=== PATIENT | male | born 1940 | race Asian ===

== ENCOUNTER 2021-01-06 09:23 | Outpatient (REF) | payer MEDICARE, SELFPAY ==
--- NOTE | 2021-01-06 15:08 | MHC.AU.ANR ---
Adult Audiological Evaluation Date of Visit: 01/06/21 House Mover Helper Used: Citizen [place] translation provided by patient's daughter Reason for Appointment: Audiological evaluation due to concern for decreased hearing. Patient notes that he can hear, he just has trouble understanding speech at times. His daughter notes that they do often have to repeat themselves. 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, diabetic neuropathy, high cholestorol, anemia, migraine, cataract surgery in 2013, abdominal surgery 2005 Medication List: Januvia 100 mg, Atorvastatin 20 mg, Metformin ER 500 mg 2x daily, Omeprazole 20 mg, Glipizide 10 mg Otoscopy: Right Ear: Unremarkable Left Ear: Unremarkable Tympanometry: Tympanometry performed due to: History of middle ear dysfunction Right Ear: Normal Middle Ear System (Type A) Left Ear: Normal Middle Ear System (Type A) Hearing Evaluation: Transducer(s) Used: Insert Earphones, Bone Conduction Method: Conventional Audiometry Stimuli Used: Pure Tones Right Ear: Description of Hearing: Moderate sloping to severe sensorineural hearing loss from 250-8000 Hz. Left Ear: Description of Hearing: Moderate sloping to severe sensorineural hearing loss from 250-8000 Hz. Speech Recognition Threshold (SRT): Method Used: Not performed at today's visit. Patient speaks [place]. Word Discrimination: Method: Not performed at today's visit. Patient speaks [place]. Recommendations: Audiological re-evaluation in one year. Trial with amplification is recommended. Patient states he is not interested in pursuing hearing aids at this time. His daughter notes that he also refuses to wear his dentures and glasses. Recommend he contact his insurance to see if he has a hearing aid benefit if he decides he would like to pursue hearing aids. Diagnosis: Primary Diagnosis: H90.3 Bilateral Sensorineural Hearing Loss Services Performed: Services Performed: Pure Tone- Air & Bone (CPT 63563) Tympanometry (CPT 96618) Signature: Provider: Heraclio Castellanos, CCC-A
== END 2021-01-06 09:24 | disposition home or self-care (01) ==
LOC: HO.SH 09:23
PROVIDERS: Visit Provider Nurse Practitioner Family
DX: H90.3 Sensorineural hearing loss, bilateral (principal)
CPT/HCPCS: 92553; 92567

== ENCOUNTER 2021-02-19 07:06 | Emergency (ER) | payer MEDICARE, SELFPAY ==
--- NOTE | ~2021-02-19 | XR_ITS ---
EXAMINATION: XR CHEST CLINICAL INFORMATION: Fever COMPARISON: October 01, 2018 TECHNIQUE: AP portable view of the chest was obtained. FINDINGS: There is some patchy groundglass opacity seen about the inferior half of the left lung with some bronchial wall thickening. No confluent disease is seen. No pneumothorax or pleural effusion. Heart normal size. No evidence of pulmonary edema. XR/XR chest 1V IMPRESSION: Ill-defined patchy density left base which may be related to pneumonitis or atelectasis.
--- NOTE | ~2021-02-19 | CT_ITS ---
EXAMINATION: CT ABDOMEN AND PELVIS WITH CONTRAST CLINICAL INFORMATION: Left lower quadrant pain COMPARISON: October 01, 2018 TECHNIQUE: Multidetector volumetric images were obtained from the superior aspect of the liver through the pubic symphysis following administration 85 mL of Omnipaque 350 intravenous contrast. Sagittal and coronal reformatted images were obtained on the technologist's workstation. Oral contrast: No This CT examination was performed using dose optimization techniques as appropriate, variously including the following: *Automated exposure control *Adjustment of mA and/or kV according to patient size (this includes techniques or standardized protocols for targeted exams where dose is matched to indication/reason for exam; i.e. extremities or head) *Use of iterative reconstruction technique DLP: 397 mGy-cm FINDINGS: Motion artifact present about the upper abdomen. LUNG BASES: There is some groundglass interstitial lung disease seen at the lung bases bilaterally. No pleural or pericardial effusion. Coronary artery calcifications present. LIVER, GALLBLADDER, AND BILIARY TREE: The liver is normal in size, shape, and attenuation. No focal hepatic lesion or biliary ductal dilatation is present. The gallbladder is unremarkable with no evidence of radiopaque gallstones, gallbladder wall thickening, or obvious pericholecystic inflammatory changes. PANCREAS: Unremarkable. SPLEEN: Splenic calcified granulomas are present. ADRENAL GLANDS: Unremarkable. KIDNEYS AND URETERS: The kidneys are normal in size, shape, and attenuation. No hydronephrosis, hydroureter, or calculi seen. No perinephric stranding. There are a few tiny cortical cysts seen within the left kidney. BLADDER: Unremarkable. GASTROINTESTINAL TRACT: No dilated loops of large or small bowel are evident. There are a few fluid-filled loops of small bowel seen within the left abdomen. There is some gaseous distention of transverse colon. No wall thickening is evident. There is no evidence of acute appendicitis. No pericolonic inflammatory changes seen to suggest colitis. No free air or free fluid. ABDOMINAL WALL: No significant hernia is appreciated. LYMPH NODES: No lymphadenopathy appreciated. VASCULAR: There is moderate aortoiliac calcified plaque present. Visceral vessels are patent. There is question of hemodynamically significant right common iliac stenosis. PELVIC VISCERA: Some prostatic calcifications are present. There is some mass impression upon the posterior inferior aspect of the urinary bladder from median lobe of the prostate gland. OSSEOUS STRUCTURES: No suspicious destructive bony lesions identified. CT/CT abdomen pelvis w con IMPRESSION: No evidence of ileus or obstruction. No evidence of obstructive uropathy. No specific findings to explain patient's symptoms identified.
--- NOTE | 2021-02-19 07:16 | ECG_ITS ---
Test Reason : abd pain Blood Pressure : / mmHG Vent. Rate : 100 BPM Atrial Rate : 100 BPM P-R Int : 180 ms QRS Dur : 142 ms QT Int : 386 ms P-R-T Axes : 045 021 048 degrees QTc Int : 497 ms Normal sinus rhythm Right bundle branch block Abnormal ECG When compared with ECG of 25-JUN-2015 02:15, Right bundle branch block is now Present Referred By: Mary Kay Schmidt Electronically Signed By:FELICITAS DEUTSCH
[2021-02-19 08:00] VITALS: PULSE 116; RESP 20; TEMP 38.6; O2SAT 97; BMI 21.6
--- NOTE | 2021-02-19 08:11 | ED.ABDPAIN ---
HPI - Abdominal Pain General Chief Complaint: Abdominal Pain Stated Complaint: abd pain Time Seen by Provider: 02/19/21 07:16 Source: patient Mode of arrival: ambulatory Limitations: no limitations History of Present Illness HPI narrative: Patient comes to the emergency room complaining of left lower quadrant pain that started yesterday. Patient denies vomiting or diarrhea. Patient denies fever. However, in triage patient did have a fever of 101.5. Patient states he has had this kind of pain before. Patient does have history of kidney stones. Patient is compliant speaking, his daughter is at bedside, on interpretation was done through the interpreter for the deaf [employer] Related Data Previous Rx's Medication Instructions Recorded levofloxacin 500 mg tablet 500 mg PO DAILY #6 tab 02/19/21 Allergies Allergy/AdvReac Type Severity Reaction Status Date / Time shellfish derived Allergy Intermediate HIVES Unverified 03/06/20 18:53 [SHELLFISH DERIVED] Review of Systems Review of Systems Constitutional : No Weight loss, No Fever, No Chills, No Night Sweats, No Fatigue, No Malaise ENT/Mouth : No Hearing loss, No Ear Pain, No Nasal Congestion, No Sinus Pain, No Hoarseness, No sore throat, No Rhinorrhea, No Swallowing Difficulty Eyes: No Eye Pain, No Swelling, No Redness, No Foreign Body, No Discharge, No Vision Changes Cardiovascular : No Chest Pain, No SOB, No Dyspnea on Exertion, No Orthopnea, No Edema, No Palpitations Respiratory : No Cough, No Sputum, No Wheezing, No Smoke Exposure, No Dyspnea Gastrointestinal : No Nausea, No Vomiting, No Diarrhea, No Constipation, complaining of left lower quadrant pain No Hematochezia, No Melena Genitourinary : no irregular bleeding, No Dysuria, No Urinary Frequency, No Hematuria, No Urinary Incontinence, No Urgency, No Flank Pain, No Urinary Flow Changes, No Hesitancy Musculoskeletal : No joint pain, No Myalgias, No Joint Swelling Skin : No Skin Lesions, No rash Neuro : No Weakness, No Numbness, No Paresthesias, No Loss of Consciousness, No Dizziness, No Headache Psych : No Anxiety/Panic, No Depression, No SI/HI/AH/VH, No Social Issues, Heme/Lymph: No Bruising, No Bleeding,No Lymphadenopathy Endocrine : No Polyuria, No Polydipsia, No Temperature Intolerance Physical Exam Vital Signs: Vital Signs: Last Vital Signs Temp 99 F 09/02/21 10:40 Pulse 94 02/19/21 10:40 Resp 17 02/19/21 10:40 BP 135/88 02/19/21 10:40 Pulse Ox 96 02/19/21 10:40 Body Mass Index 21.6 Const: Other: Appearance: Alert. Oriented X3. No acute distress. Eyes: Pupils equal, round and reactive to light. ENT: Pharynx normal. Neck: Normal inspection. Neck supple. No lymph nodes noted. No crepitus CVS: Normal heart rate and rhythm. Pulses normal. Normal S1 and S2 Respiratory: No respiratory distress. Breath sounds normal. No Wheezing. No rales Abdomen: Soft , [id number] tenderness to palpation in the left lower quadrant No rigidity. No distention. Skin: Skin warm and dry. Normal skin color. Normal skin turgor. Extremities: No lower extremity edema. No lower extremity edema. No Lacerations. No Rash. Patient is ambulatory without any help, has normal strength. Neuro: Oriented X 3. No motor deficit. No sensory deficit. Moving all extermities. No slurred speech. Course Course Course Narrative: I discussed with the patient and his daughter the labs and the CT scan findings. I also discussed with the that there may be a mass in the posterior inferior aspect of the urinary bladder from the median lobe of the prostate gland. Patient will follow-up with his primary care physician, he may need to follow-up with urology. Patient was given 1 p.o. dose of Levaquin, to cover both possible pneumonia and UTI. At this time sepsis is not suspected. MDM - Abdominal Pain Lab Data Result diagrams: 02/19/21 08:24 02/19/21 08:24 Labs: Lab Results 02/19/21 02/19/21 02/19/21 Range/Units 08:24 08:24 08:24 WBC 11.9 H (4.8-10.8) X10*3/uL RBC 4.19 L (4.60-5.80) X10*6/uL Hgb 12.5 L (14.0-18.0) g/dl Hct 37.5 L (42-52) % MCV 89.5 (80-98) fL MCH 29.8 (27.0-33.0) pg MCHC 33.3 (31.0-36.0) g/dl RDW 12.7 (11.0-16.0) % Plt Count 153 L (160-400) X10*3/uL MPV 10.1 (9.4-12.4) fL Immature Gran % (Auto) 0.4 (0.0-0.4) % Neut % (Auto) 78.9 H (45-73) % Lymph % (Auto) 7.8 L (20-40) % [place] % (Auto) 7.0 (2-11) % Eos % (Auto) 5.7 H (0-4) % Baso % (Auto) 0.2 (0-2) % Lymph # (Auto) 0.9 L (1.2-4.9) X10*3/uL [place] # (Auto) 0.8 (0.1-1.2) X10*3/uL Eos # (Auto) 0.7 H (0.0-0.4) X10*3/uL Baso # (Auto) 0.0 (0.0-0.2) X10*3/uL Abs Immat Gran (auto) 0.05 H (0.00-0.03) X10*3/uL Absolute Neuts (auto) 9.4 H (2.0-8.3) X10*3/uL Absolute Nucleated RBC 0.000 (0.0-0.012) X10*3/uL Nucleated RBC % (auto) 0.0 (0.0-0.2) /100WBC Smear Tech's Comments VERIFIED PT 11.7 (9.9-13.0) SEC INR 1.0 (0.9-1.1) Sodium 133 L (135-145) mmol/L Potassium 4.4 (3.3-5.1) mmol/L Chloride 101 (96-108) mmol/L Carbon Dioxide 23 (22-29) mmol/L Anion Gap 13 (12-20) BUN 10 (9-16) mg/dL Creatinine 1.01 (0.5-1.4) mg/dL Estim Creat Clear Calc 49.4 Estimated GFR > 60 Random Glucose 167 H (60-115) mg/dL Lactic Acid (0.5-2.0) mmol/L Calcium 9.2 (8.4-10.2) mg/dL Total Bilirubin 0.6 (0.0-1.0) mg/dL Direct Bilirubin 0.2 (0.0-0.5) mg/dL AST 26 (5-37) U/L ALT 16 (0-40) U/L Alkaline Phosphatase 107 (39-117) U/L Total Protein 8.1 H (6.5-8.0) g/dL Albumin 4.1 (3.5-5.0) g/dL Lipase (8-78) U/L Urine Color Urine Appearance Urine pH (5.0-8.0) Ur Specific [place] (1.005-1.025) Urine Protein (NEG-TRACE) MG/DL Urine Glucose (UA) (NEG) MG/DL Urine Ketones (NEG) MG/DL Urine Blood (NEG) Urine Nitrite (NEG) Ur Leukocyte Esterase (NEG) Urine RBC (0) /HPF Urine WBC (0-4) /HPF Ur Squamous Epith Cells /LPF Urine Bacteria /LPF COVID-19 ([facility]) (Negative) COVID-19 Clin Com 02/19/21 02/19/21 02/19/21 Range/Units 08:24 08:24 08:24 WBC (4.8-10.8) X10*3/uL RBC (4.60-5.80) X10*6/uL Hgb (14.0-18.0) g/dl Hct (42-52) % MCV (80-98) fL MCH (27.0-33.0) pg MCHC (31.0-36.0) g/dl RDW (11.0-16.0) % Plt Count (160-400) X10*3/uL MPV (9.4-12.4) fL Immature Gran % (Auto) (0.0-0.4) % Neut % (Auto) (45-73) % Lymph % (Auto) (20-40) % [place] % (Auto) (2-11) % Eos % (Auto) (0-4) % Baso % (Auto) (0-2) % Lymph # (Auto) (1.2-4.9) X10*3/uL [place] # (Auto) (0.1-1.2) X10*3/uL Eos # (Auto) (0.0-0.4) X10*3/uL Baso # (Auto) (0.0-0.2) X10*3/uL Abs Immat Gran (auto) (0.00-0.03) X10*3/uL Absolute Neuts (auto) (2.0-8.3) X10*3/uL Absolute Nucleated RBC (0.0-0.012) X10*3/uL Nucleated RBC % (auto) (0.0-0.2) /100WBC Smear Tech's Comments PT (9.9-13.0) SEC INR (0.9-1.1) Sodium (135-145) mmol/L Potassium (3.3-5.1) mmol/L Chloride (96-108) mmol/L Carbon Dioxide (22-29) mmol/L Anion Gap (12-20) BUN (9-16) mg/dL Creatinine (0.5-1.4) mg/dL Estim Creat Clear Calc Estimated GFR Random Glucose (60-115) mg/dL Lactic Acid 1.5 (0.5-2.0) mmol/L Calcium (8.4-10.2) mg/dL Total Bilirubin (0.0-1.0) mg/dL Direct Bilirubin (0.0-0.5) mg/dL AST (5-37) U/L ALT (0-40) U/L Alkaline Phosphatase (39-117) U/L Total Protein (6.5-8.0) g/dL Albumin (3.5-5.0) g/dL Lipase 32 (8-78) U/L Urine Color Urine Appearance Urine pH (5.0-8.0) Ur Specific [place] (1.005-1.025) Urine Protein (NEG-TRACE) MG/DL Urine Glucose (UA) (NEG) MG/DL Urine Ketones (NEG) MG/DL Urine Blood (NEG) Urine Nitrite (NEG) Ur Leukocyte Esterase (NEG) Urine RBC (0) /HPF Urine WBC (0-4) /HPF Ur Squamous Epith Cells /LPF Urine Bacteria /LPF COVID-19 ([facility]) Negative (Negative) COVID-19 Clin Com See Note 02/19/21 Range/Units 09:08 WBC (4.8-10.8) X10*3/uL RBC (4.60-5.80) X10*6/uL Hgb (14.0-18.0) g/dl Hct (42-52) % MCV (80-98) fL MCH (27.0-33.0) pg MCHC (31.0-36.0) g/dl RDW (11.0-16.0) % Plt Count (160-400) X10*3/uL MPV (9.4-12.4) fL Immature Gran % (Auto) (0.0-0.4) % Neut % (Auto) (45-73) % Lymph % (Auto) (20-40) % [place] % (Auto) (2-11) % Eos % (Auto) (0-4) % Baso % (Auto) (0-2) % Lymph # (Auto) (1.2-4.9) X10*3/uL [place] # (Auto) (0.1-1.2) X10*3/uL Eos # (Auto) (0.0-0.4) X10*3/uL Baso # (Auto) (0.0-0.2) X10*3/uL Abs Immat Gran (auto) (0.00-0.03) X10*3/uL Absolute Neuts (auto) (2.0-8.3) X10*3/uL Absolute Nucleated RBC (0.0-0.012) X10*3/uL Nucleated RBC % (auto) (0.0-0.2) /100WBC Smear Tech's Comments PT (9.9-13.0) SEC INR (0.9-1.1) Sodium (135-145) mmol/L Potassium (3.3-5.1) mmol/L Chloride (96-108) mmol/L Carbon Dioxide (22-29) mmol/L Anion Gap (12-20) BUN (9-16) mg/dL Creatinine (0.5-1.4) mg/dL Estim Creat Clear Calc Estimated GFR Random Glucose (60-115) mg/dL Lactic Acid (0.5-2.0) mmol/L Calcium (8.4-10.2) mg/dL Total Bilirubin (0.0-1.0) mg/dL Direct Bilirubin (0.0-0.5) mg/dL AST (5-37) U/L ALT (0-40) U/L Alkaline Phosphatase (39-117) U/L Total Protein (6.5-8.0) g/dL Albumin (3.5-5.0) g/dL Lipase (8-78) U/L Urine Color YELLOW Urine Appearance HAZY Urine pH 6.0 (5.0-8.0) Ur Specific [place] <= 1.005 (1.005-1.025) Urine Protein NEG (NEG-TRACE) MG/DL Urine Glucose (UA) NEG (NEG) MG/DL Urine Ketones NEG (NEG) MG/DL Urine Blood NEG (NEG) Urine Nitrite NEG (NEG) Ur Leukocyte Esterase 1+ H (NEG) Urine RBC 0-2 (0) /HPF Urine WBC 15-29 H (0-4) /HPF Ur Squamous Epith Cells TRACE /LPF Urine Bacteria TRACE /LPF COVID-19 ([facility]) (Negative) COVID-19 Clin Com Imaging Data CT scan - abdomen: Radiologist's impression: FINDINGS: Motion artifact present about the upper abdomen. LUNG BASES: There is some groundglass interstitial lung disease seen at the lung bases bilaterally. No pleural or pericardial effusion. Coronary artery calcifications present. LIVER, GALLBLADDER, AND BILIARY TREE: The liver is normal in size, shape, and attenuation. No focal hepatic lesion or biliary ductal dilatation is present. The gallbladder is unremarkable with no evidence of radiopaque gallstones, gallbladder wall thickening, or obvious pericholecystic inflammatory changes.? PANCREAS: Unremarkable.? SPLEEN: Splenic calcified granulomas are present.? ADRENAL GLANDS: Unremarkable.? KIDNEYS AND URETERS: The kidneys are normal in size, shape, and attenuation. No hydronephrosis, hydroureter, or calculi seen. No perinephric stranding. There are a few tiny cortical cysts seen within the left kidney. BLADDER: Unremarkable.? GASTROINTESTINAL TRACT: No dilated loops of large or small bowel are evident. There are a few fluid-filled loops of small bowel seen within the left abdomen. There is some gaseous distention of transverse colon. No wall thickening is evident. There is no evidence of acute appendicitis. No pericolonic inflammatory changes seen to suggest colitis. No free air or free fluid.? ABDOMINAL WALL: No significant hernia is appreciated.? LYMPH NODES: No lymphadenopathy appreciated. VASCULAR: There is moderate aortoiliac calcified plaque present. Visceral vessels are patent. There is question of hemodynamically significant right common iliac stenosis. PELVIC VISCERA: Some prostatic calcifications are present. There is some mass impression upon the posterior inferior aspect of the urinary bladder from median lobe of the prostate gland. OSSEOUS STRUCTURES: No suspicious destructive bony lesions identified. CT/CT abdomen pelvis w con IMPRESSION: No evidence of ileus or obstruction. ? No evidence of obstructive uropathy. ? No specific findings to explain patient's symptoms identified.? Chest x-ray: Radiologist's impression: There is some patchy groundglass opacity seen about the inferior half of the left lung with some bronchial wall thickening. No confluent disease is seen. No pneumothorax or pleural effusion. Heart normal size. No evidence of pulmonary edema. XR/XR chest 1V IMPRESSION: Ill-defined patchy density left base which may be related to pneumonitis or atelectasis. ECG Data Attestation: I personally reviewed and interpreted this ECG as follows: (Sinus rhythm, new right bundle-branch block when compared to EKG from 2016, no T-wave abnormality, QTC 480) Discharge Plan Discharge Clinical Impression: Acute UTI, Pneumonia, Abdominal pain Patient Disposition: Home, Self-Care Instructions: Urinary Tract Infection in Men (ED), Pneumonia (ED) Additional Instructions: Please follow-up with your primary care physician, you may need to be referred to Urology. Your CT scan showed a mass impression upon the inferior aspect of the urinary bladder from the prostate gland. Please follow-up with your primary care physician tomorrow. If you have any worsening or new symptoms, please return to the emergency room or call 911 Prescriptions: New levofloxacin 500 mg tablet 500 mg PO DAILY Qty: 6 RF: 0 PMFSH Past Medical History Medical History (Updated 02/19/21 @ 11:19 by Mary Kay Schmidt MD) Diabetes Hypertension Kidney stone Social History Social History Advance Directives: No Advance Directives Information Provided: No
[2021-02-19] MEDS: 0.9 % Sodium Chloride 1,000 ML 999 ML IVCONT (08:27)
[2021-02-19] MEDS: Acetaminophen 325 MG TABLET 650 MG PO (08:27)
[2021-02-19 08:35] LABS: Basophils Percent Auto 0.2 % (0-2); Eosinophils Absolute Auto 0.7 X10*3/uL (0.0-0.4); Eosinophils Percent Auto 5.7 % (0-4); Hematocrit 37.5 % (42-52); Hemoglobin 12.5 g/dl (14.0-18.0); Imm Gran Abs Auto 0.05 X10*3/uL (0.00-0.03); Imm Gran Pct Auto 0.4 % (0.0-0.4); Lymphocytes Absolute Auto 0.9 X10*3/uL (1.2-4.9); Lymphocytes Percent Auto 7.8 % (20-40); MANUAL DIFF FLAG SCAN; Mean Corpuscular HGB Conc 33.3 g/dl (31.0-36.0); Mean Corpuscular Hemoglobin 29.8 pg (27.0-33.0); Mean Corpuscular Volume 89.5 fL (80-98); Monocytes Absolute Auto 0.8 X10*3/uL (0.1-1.2); Neutrophils Absolute Auto 9.4 X10*3/uL (2.0-8.3); Neutrophils Percent Auto 78.9 % (45-73); PLT CLUMP 1; Red Blood Count 4.19 X10*6/uL (4.60-5.80); Red Cell Distribution Width 12.7 % (11.0-16.0); SCAN SMEAR FLAG 1
[2021-02-19 08:36] LABS: White Blood Count 11.9 X10*3/uL (4.8-10.8)
[2021-02-19 08:39] LABS: Prothrombin Time 11.7 SEC (9.9-13.0)
[2021-02-19 08:47] LABS: COVID-19 Test Negative (Negative); IDNOW Serial# 9DD0AD1C
[2021-02-19 08:48] LABS: Lipase 32 U/L (8-78)
[2021-02-19 08:52] LABS: Mean Platelet Volume 10.1 fL (9.4-12.4); Platelet Count 153 X10*3/uL (160-400); SLIDE REVIEW VERIFIED
[2021-02-19 08:54] LABS: Alanine Aminotransferase 16 U/L (0-40); Albumin Level 4.1 g/dL (3.5-5.0); Alkaline Phosphatase 107 U/L (39-117); Anion Gap 13 (12-20); Aspartate Amino Transferase 26 U/L (5-37); Bilirubin Direct 0.2 mg/dL (0.0-0.5); Bilirubin Total 0.6 mg/dL (0.0-1.0); Blood Urea Nitrogen 10 mg/dL (9-16); Calcium 9.2 mg/dL (8.4-10.2); Carbon Dioxide 23 mmol/L (22-29); Chloride 101 mmol/L (96-108); Creatinine Clr Calc Pharmacy 49.4; Estimated Glomerular Filt Rate > 60; Glucose Random 167 mg/dL (60-115); Potassium 4.4 mmol/L (3.3-5.1); Sodium 133 mmol/L (135-145); Total Protein 8.1 g/dL (6.5-8.0)
[2021-02-19 08:59] LABS: Lactic Acid 1.5 mmol/L (0.5-2.0)
[2021-02-19 09:23] LABS: Appearance Urine HAZY; Color Urine YELLOW; Glucose Urine UA NEG (NEG); Leukocyte Esterase Urine 1+ (NEG); Nitrite Urine NEG (NEG); Specific Gravity - Urine <= 1.005 (1.005-1.025); UACC Culture Trigger YES; Urine Blood NEG (NEG); Urine Ketones NEG (NEG); Urine Protein NEG (NEG-TRACE)
[2021-02-19] MEDS: iohexoL 350 MG/ML 100 ML INFUS..BTL IV (09:31)
[2021-02-19 09:34] LABS: Bacteria Urine TRACE /LPF; RBC Urine 0-2 /HPF (0); Squamous Epithelial Cell Urine TRACE /LPF
[2021-02-19 10:40] VITALS: BP 135/88; PULSE 94; RESP 17; TEMP 37.2; O2SAT 96
== END 2021-02-19 11:44 | disposition home or self-care (01) ==
PROVIDERS: Emergency Provider Emergency Medicine; PCP Internal Medicine
DX: J18.9 Pneumonia, unspecified organism (principal); N39.0 Urinary tract infection, site not specified; R10.32 Left lower quadrant pain; Z20.822 Contact with and (suspected) exposure to COVID-19; Z79.899 Other long term (current) drug therapy
CPT/HCPCS: 36415; 71045; 74177; 80048; 80076; 81001; 83605; 83690; 85025; 85610; 87040; 87086; 87088; 87186; 87635; 93005; 96360; 99284; Q9967

== ENCOUNTER 2023-10-29 17:20 | Inpatient (IN) | payer MEDICARE, SELFPAY ==
[2023-10-29] VITALS (9 sets, daily range): BP systolic 113–196; BP diastolic 54–100; PULSE 102–126; RESP 14–24; TEMP 37.3–39.4; O2SAT 96–100; BMI 16.4
--- NOTE | ~2023-10-29 | XR_ITS ---
EXAMINATION: XR CHEST CLINICAL INFORMATION: Sepsis COMPARISON: Chest radiograph 02/19/2021. TECHNIQUE: Frontal view of the chest was obtained. FINDINGS: Mild coarse, streaky bibasilar reticular opacities, similar to prior. No confluent consolidation. No pleural effusion or pneumothorax. Cardiomediastinal silhouette is unchanged. XR/XR chest 1V IMPRESSION: Mild coarse, streaky bibasilar reticular opacities, similar to prior, favored to represent scarring. No confluent consolidation.
--- NOTE | ~2023-10-29 | CT_ITS ---
EXAMINATION: CT head/brain wo IV con, CT cervical spine wo IV con INDICATION INFORMATION: Reason for Exam altered mental status COMPARISON: CT head 12/23/2016 TECHNIQUE: Separate noncontrast CT examinations of the head and cervical spine were performed. Coronal and sagittal images were created for each examination at the technologist workstation. This CT examination was performed using dose optimization techniques as appropriate, variously including the following: *Automated exposure control *Adjustment of mA and/or kV according to patient size (this includes techniques or standardized protocols for targeted exams where dose is matched to indication/reason for exam; i.e. extremities or head) *Use of iterative reconstruction technique DLP: 911.55 mGy-cm mGy-cm FINDINGS: Head: FINDINGS: There is no evidence of acute intracranial hemorrhage]. No mass-effect or ventricular shift is noted. No acute, territorial loss of napier-white differentiation. Generalized cerebral volume loss with associated ventricular and sulcal prominence. Chronic right basal ganglia/thomas radiata lacunar infarction. Smaller chronic left basal ganglia and left ambika lacunar infarctions. Periventricular and subcortical white matter hypodensity is nonspecific but likely represents chronic microvascular ischemic change. No depressed calvarial fracture. There is complete opacification of the left maxillary sinus with polypoid soft tissue thickening calcifications protruding into the left nasal cavity. Bony neoosteogenesis suggesting chronicity. Moderate opacification of the ethmoid air cells with additional scattered paranasal sinus mucosal thickening. The mastoid air cells are well-aerated. Left intraocular lens replacement. Cervical spine: No prevertebral soft tissue swelling. The craniocervical junction is intact. Straightening with mild reversal the normal cervical lordosis There is no significant spondylolisthesis. Vertebral body heights are maintained. Diffusely heterogeneous vertebral bodies may reflect underlying osteopenia. Multilevel degenerative changes of the cervical spine with areas of moderate spinal canal stenosis Biapical pleural parenchymal scarring. Paraseptal emphysematous changes at lung apices. CT/CT cervical spine wo IV con IMPRESSION: No acute intracranial hemorrhage. 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 No acute, displaced cervical spine fracture. 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 If there is symptomatology referrable to this region, dedicated cervical spine MRI is suggested for further evaluation.
--- NOTE | 2023-10-29 17:32 | ECG_ITS ---
Test Reason : SYNCOPE FALL Blood Pressure : / mmHG Vent. Rate : 120 BPM Atrial Rate : 120 BPM P-R Int : 178 ms QRS Dur : 138 ms QT Int : 350 ms P-R-T Axes : 073 008 059 degrees QTc Int : 494 ms Sinus tachycardia Right bundle branch block Abnormal ECG When compared with ECG of 19-FEB-2021 07:51, No significant change was found Referred By: Jack Gupta Electronically Signed By:Clint Ramirez
--- NOTE | 2023-10-29 17:40 | ED.GENADULT ---
HPI - General Adult General Chief complaint: Fall Stated complaint: FELL 1HR AGO,AMS,SHAKING,BARELY RESPONSIVE Time Seen by Provider: 10/29/23 17:22 Source: patient, EMS, RN notes reviewed and old records reviewed Mode of arrival: EMS Limitations: language barrier and altered mental status History of Present Illness HPI narrative: 83-year-old male with past medical history significant for hypertension, diabetes presents for evaluation of altered mental status. The patient is primarily Syrian speaking. Per EMS he understands some [place] Citizen at baseline Per EMS the patient has had multiple falls today He did not recognize family this morning which is not consistent with his baseline He was not complaining of any pain He urinated himself prior to coming to the hospital and then immediately upon arrival No time but apparently family is on their way in and can provide more history On arrival to the ED, the patient spontaneously opens his eyes but does not respond to verbal stimuli. He intermittently responds to painful stimuli. When we sat him up he did move all of his extremities purposefully There is no facial droop He does not have any anticoagulation on the med list provided by EMS Related Data Previous Rx's ?Medication ?Instructions ?Recorded levofloxacin 500 mg tablet 500 mg PO DAILY #6 tabs 02/19/21 Allergies Allergy/AdvReac Type Severity Reaction Status Date / Time shellfish derived Allergy Intermediate HIVES Verified 10/29/23 17:47 [SHELLFISH DERIVED] Review of Systems Review of Systems: Review of systems severely limited due to mental status as well as language barrier Neurologic: Reports confusion Psychiatric: Psychiatric: Reports confusion [facility] Past Medical History Medical History (Updated 10/29/23 @ 19:29 by Jack Gupta) Hypertension Diabetes Kidney stone Social History Social History Advance Directives: No Advance Directives Information Provided: No Do you have a plan to hurt others: No Plan Physical Exam ED Vital Signs: Vital Signs - 24 hr 10/29/23 17:44 10/29/23 17:49 10/29/23 18:13 Temperature 102.9 F H 100.4 F Pulse Rate 121 H 120 H 126 H Respiratory Rate 14 24 H 15 Blood Pressure 161/71 H 150/70 H 160/74 H Pulse Oximetry 100 100 Oxygen Delivery Method Room Air Room Air Oxygen Flow Rate 100 10/29/23 19:05 10/29/23 19:29 10/29/23 20:21 Temperature 102.5 F H 102.0 F H Pulse Rate 112 H 113 H 115 H Respiratory Rate 21 H 22 H 15 Blood Pressure 155/71 H 141/63 H 136/64 Pulse Oximetry 98 98 97 Oxygen Delivery Method Room Air Room Air Room Air Oxygen Flow Rate BMI result Body Mass Index 16.4 Const General: comfortable, confusion, lethargic and well groomed; No awake or combative Nutritional Appearance: thin Orientation/consciousness: confusion and lethargic Limitations: altered mental status and language barrier HENMT Other: Small area of ecchymosis to the left temporal region Eyes Alignment and Position: alignment normal Periorbital: periorbital findings normal Eyelids: Yes eyelids normal Conjunctivae: conjunctivae normal Sclerae: sclerae normal Pupils: Equal, round and reactive pupils present EOM: EOMs intact bilaterally Neck Other: Patient arrives in a hard C-collar Chest Chest palpation & inspection: normal inspection of the chest Resp Other: Patient is slightly tachypneic, but otherwise breathing appears unlabored Auscultation: clear to auscultation bilaterally Cardio Rate: abnormal rate and tachycardic Rhythm: regular rhythm GI Inspection: No distended and Yes scar (Lower midline scar) Palpation (GI): Soft to palpation, nontender and no guarding Skin General skin exam: no rashes or lesions noted Neuro General: confusion Cranial nerves: Yes Equal, round and reactive pupils present Extrem Other: Moving all extremities independently Course Reevaluation(s) Reevaluation #1: Patient is febrile, tachycardic and tachypneic to the mid 20s. A sepsis alert was called. He has urinated himself several times, so at this time most likely source is urosepsis. Plan to treat with ceftriaxone and will consider adjusting antibiotics if necessary. Workup pending sepsis alert was called Time: 17:40 Reevaluation #2: Patient appears more awake on re-evaluation. He is resting comfortably, but his eyes the remaining open and he is interactive with the surrounding. Sepsis focused exam done at this time Time: 18:35 Reevaluation #3: Patient's urinalysis shows 4+ bacteria with greater than 50 white cells likely a source of infection. He has no abdominal tenderness so we will defer abdominal imaging at this time. Family is now bedside and they state they believe the patient has had a urinary tract infection for at least the last few days. They have been attempting to treat at home with [id number] azo. Back to his baseline currently. Time: 19:28 Additional Reevaluation(s): Patient is still febrile to 102. His C-spine does not show any evidence of fracture. C-collar was removed and I gave a dose of ibuprofen that he may take p.o.. Medications Administered Discontinued Medications Generic Name Dose Route Start Last Admin Trade Name Freq PRN Reason Stop Dose Admin Acetaminophen 650 mg 10/29/23 18:33 10/29/23 18:51 Acetaminophen Supp 650 Mg Supp.Rect FL 10/29/23 18:34 650 mg ONCE ONE Administration Sodium Chloride 1,000 mls @ 999 mls/hr 10/29/23 17:45 10/29/23 19:04 Ns IV 10/29/23 18:45 Infused .Q1H1M ROMEO Infusion Ceftriaxone Sodium 1 gm/ 50 mls @ 100 mls/hr 10/29/23 17:38 10/29/23 18:52 Sodium Chloride IV 10/29/23 18:07 Infused ONCE ONE Infusion Ibuprofen 600 mg 10/29/23 20:43 10/29/23 20:55 Ibuprofen 600 Mg Tablet PO 10/29/23 20:44 Not Given ONCE ONE Medical Decision Making Medical Decision Making MDM Narrative: 83-year-old male past medical history significant for hypertension, diabetes presents for evaluation of altered mental status as well as multiple falls. He arrives tachycardic, tachypneic and febrile. Likely sepsis. Given that he is not coughing and does not appear short of breath, he has no obvious rashes and he urinated himself just before hospital and at the hospital, UTI sepsis is most likely diagnosis. Patient's blood pressure is 161/71. We will start treatment with IV fluids and ceftriaxone. Workup pending. Differential Diagnosis Differential Diagnoses: The differential diagnosis associated with the presentation includes UTI Sepsis Viral syndrome Pneumonia Upper respiratory infection Cellulitis Intra-abdominal infection Lab Data 10/29/23 17:54 10/29/23 18:31 Labs: Lab Results 10/29/23 10/29/23 10/29/23 Range/Units 17:54 18:31 19:01 WBC 8.4 (4.8-10.8) X10*3/uL RBC 3.67 L (4.60-5.80) X10*6/uL Hgb 11.1 L (14.0-18.0) g/dl Hct 32.6 L (42.0-52.0) % MCV 88.8 (80.0-98.0) fL MCH 30.2 (27.0-33.0) pg MCHC 34.0 (31.0-36.0) g/dl RDW 14.0 (11.0-16.0) % Plt Count 190 (160-400) X10*3/uL MPV 9.2 L (9.4-12.4) fL Immature Gran % (Auto) 0.5 H (0.0-0.4) % Neut % (Auto) 88.0 H (45-73) % Lymph % (Auto) 4.8 L (20-40) % [place] % (Auto) 6.3 (2-11) % Eos % (Auto) 0.2 (0-4) % Baso % (Auto) 0.2 (0-2) % Lymph # (Auto) 0.4 L (1.2-4.9) X10*3/uL [place] # (Auto) 0.5 (0.1-1.2) X10*3/uL Eos # (Auto) 0.0 (0.0-0.4) X10*3/uL Baso # (Auto) 0.0 (0.0-0.2) X10*3/uL Abs Immat Gran (auto) 0.04 H (0.00-0.03) X10*3/uL Absolute Neuts (auto) 7.4 (2.0-8.3) x10*3/uL Absolute Nucleated RBC 0.000 (0.0-0.012) X10*3/uL Nucleated RBC % (auto) 0.0 (0.0-0.2) /100WBC PT 13.2 (11.1-13.3) SEC INR 1.1 (0.9-1.1) Sodium 131 L (135-145) mmol/L Potassium 3.7 (3.3-5.1) mmol/L Chloride 99 (96-108) mmol/L Carbon Dioxide 17 L (22-29) mmol/L Anion Gap 19 (12-20) BUN 18 H (9-16) mg/dL Creatinine 1.10 (0.5-1.4) mg/dL Estim Creat Clear Calc 33.6 Estimated GFR > 60 Random Glucose 264 H (60-115) mg/dL Lactic Acid 1.6 (0.5-2.0) mmol/L Calcium 9.0 (8.4-10.2) mg/dL Total Bilirubin 0.4 (0.0-1.0) mg/dL AST 29 (5-37) U/L ALT 15 (0-40) U/L Alkaline Phosphatase 89 (39-117) U/L Troponin I High Sens 39.8 H (<3.5-35.0) ng/L Total Protein 8.6 H (6.5-8.0) g/dL Albumin 3.8 (3.5-5.0) g/dL Lipase 26 (8-78) U/L Urine Color Dark Yellow Urine Appearance Cloudy Urine pH 6.5 (5.0-9.0) Ur Specific [place] 1.015 (1.005-1.025) Urine Protein 100 (2+) H (Neg-Trace) mg/dL Urine Glucose (UA) 250 H (Negative) mg/dL Urine Ketones 15 (Negative) mg/dL Urine Blood Large (3+) H (Negative) Urine Nitrite Negative (Negative) Ur Leukocyte Esterase Moderate (2+) H (Negative) Urine RBC 3-5 H (0-2) /HPF Urine WBC >50 H (0-5) /HPF Ur Squamous Epith Cells 0-2 (0-2) /HPF Urine Bacteria 4+ (None Seen) Hyaline Casts 0-2 (0-2) /LPF Influenza Type A (PCR) NEGATIVE (Negative) Influenza Type B (PCR) NEGATIVE (Negative) RSV RNA Qual (PCR) NEGATIVE (Negative) SARS-CoV-2 RNA (RT-PCR) NEGATIVE (Negative) Discharge Plan Discharge Clinical Impression: Acute UTI, Sepsis Patient Disposition: Admitted As Inpatient Print Language: Belarusian
[2023-10-29 18:00] LABS: MANUAL DIFF FLAG NO
[2023-10-29] MEDS: 0.9 % Sodium Chloride 1,000 ML 999 ML IV (18:01)
[2023-10-29 18:02] LABS: Basophils Percent Auto 0.2 % (0-2); Eosinophils Percent Auto 0.2 % (0-4); Hematocrit 32.6 % (42.0-52.0); Hemoglobin 11.1 g/dl (14.0-18.0); Imm Gran Abs Auto 0.04 X10*3/uL (0.00-0.03); Imm Gran Pct Auto 0.5 % (0.0-0.4); Lymphocytes Absolute Auto 0.4 X10*3/uL (1.2-4.9); Lymphocytes Percent Auto 4.8 % (20-40); Mean Corpuscular Hemoglobin 30.2 pg (27.0-33.0); Mean Corpuscular Volume 88.8 fL (80.0-98.0); Mean Platelet Volume 9.2 fL (9.4-12.4); Monocytes Absolute Auto 0.5 X10*3/uL (0.1-1.2); Monocytes Percent Auto 6.3 % (2-11); Neutrophils Absolute Auto 7.4 x10*3/uL (2.0-8.3); Platelet Count 190 X10*3/uL (160-400); Red Blood Count 3.67 X10*6/uL (4.60-5.80); White Blood Count 8.4 X10*3/uL (4.8-10.8)
[2023-10-29] MEDS: cefTRIAXone sodium 1 GM in 0.9 % Sodium Chloride 50 ML IV (18:10)
[2023-10-29 18:11] LABS: Lactic Acid 1.6 mmol/L (0.5-2.0)
[2023-10-29 18:18] LABS: INTERNATIONAL NORM RATIO 1.1 (0.9-1.1); Prothrombin Time 13.2 SEC (11.1-13.3)
[2023-10-29] MEDS: Acetaminophen Supp 650 MG SUPP.RECT PR (18:51)
[2023-10-29 18:52] LABS: Alanine Aminotransferase 15 U/L (0-40); Albumin Level 3.8 g/dL (3.5-5.0); Alkaline Phosphatase 89 U/L (39-117); Anion Gap 19 (12-20); Aspartate Amino Transferase 29 U/L (5-37); Bilirubin Total 0.4 mg/dL (0.0-1.0); Blood Urea Nitrogen 18 mg/dL (9-16); Carbon Dioxide 17 mmol/L (22-29); Chloride 99 mmol/L (96-108); Creatinine Clr Calc Pharmacy 33.6; Estimated Glomerular Filt Rate > 60; Glucose Random 264 mg/dL (60-115); Lipase 26 U/L (8-78); Potassium 3.7 mmol/L (3.3-5.1); Sodium 131 mmol/L (135-145); Total Protein 8.6 g/dL (6.5-8.0)
[2023-10-29 18:54] LABS: Influenza A PCR NEGATIVE (Negative); Influenza B PCR NEGATIVE (Negative); Resp Syncy Virus RNA Qual PCR NEGATIVE (Negative); SARS COV2 PCR INHOUSE NEGATIVE (Negative)
[2023-10-29 18:58] LABS: Troponin-I High Sensitivity 39.8 ng/L (<3.5-35.0)
--- NOTE | 2023-10-29 19:00 | PC.NURSE ---
pt comes in with ams from home after multiple unwitnessed falls. pt presents in c-collar, unknown head strike, unknown loc. pt palpated as warm, rectal temp 102.9 and documented in worklist. HR also elevated. pt called as sepsis alert. EKG obtained, 2 IVs accessed, labs drawn, fluids hung, and pt medicated per aug. 20G IV placed to LAC and 20G IV placed to RAC. CT scan complete, awaiting results. pt family now at bedside. rr even/unlabored. plan of care ongoing. report given to KAMILAH Nowak.
--- NOTE | 2023-10-29 19:05 | MHC.EDTECH ---
tHIS PCT ASSUMED CARE OF PATIENT AT 1900 ,URINE SAMPLE COLLECTED AND SENT TO LAB ,PATIENT FAMILY AT BEDSIDE
[2023-10-29 19:07] LABS: Appearance Urine Cloudy; Color Urine Dark Yellow; Glucose Urine UA 250 mg/dL (Negative); Leukocyte Esterase Urine Moderate (2+) (Negative); Nitrite Urine Negative (Negative); PH 6.5 (5.0-9.0); Specific Gravity - Urine 1.015 (1.005-1.025); UMIC TRIGGER UACC YES; Urine Blood Large (3+) (Negative); Urine Ketones 15 mg/dL (Negative); Urine Protein 100 (2+) mg/dL (Neg-Trace)
--- NOTE | 2023-10-29 19:15 | PC.NURSE ---
assumed care of the patient at 1900 - report received from Leeann TRIANA. per previous RN, sepsis protocol initiated at 17:39 by EVERETT Oh, however sepsis sheet not complete prior to assuming care. iv fluids done at 19:04, first BP documented at 19:05. vital signs stable, pt resting comfortably on stretcher in no apparent distress, c collar in place. CT scan complete. visitor at bedside. urine sample obtained and sent to lab. [place] tylenol administered by KAMILAH carter. will obtain repeat temperature. plan of care ongoing.
[2023-10-29 19:21] LABS: Bacteria Urine 4+ (None Seen); Hyaline Casts Urine 0-2 /LPF (0-2); Squamous Epithelial Cell Urine 0-2 /HPF (0-2); UACC Culture Trigger YES; WBC Urine >50 /HPF (0-5)
--- NOTE | 2023-10-29 19:32 | MHC.EDTECH ---
PATIENT VITALS TAKEN AND BELONGINGS LIST DONE ,KAMILAH SOLOMON IS AWARE OF PATIENT HIGH TEMP OF 102.5 AND HIGH HEART RATE OF 102 .5.
--- NOTE | 2023-10-29 20:24 | MHC.EDTECH ---
VITALS TAKEN ,RN ,PATIENT WAS REPOSITION AND BOOSTED UP IN BED ,PATIENT SON AT BEDSIDE ,PATIENT IS MORE AWAKE NOW TALKING TO HIS SON .
--- NOTE | 2023-10-29 20:52 | P.HPHOSP_ITS ---
History of Present Illness Date of Service: 10/29/23 Chief Complaint: AMS This is a 83-year-old male with pertinent history of [id number]-bbskmxpiv diabetes mellitus, mixed hyperlipidemia, gastroesophageal reflux disease who was brought to the emergency department for concerns of altered mentation. History obtained with the help of family member at bedside. As per the family member, patient with generalized weakness and falls on the day of presentation. Also with urinary incontinence and confusion as per family. Patient is German speaking and only understands some Serbian. No chest discomfort, palpitations, shortness of breath, abdominal pain, changes in bowel habits. In the emergency department, patient was found to be septic and urine concerning for UTI. Review of Systems 2 Review of Systems: Yes Unobtainable due to mental status PMFSH Medical History Hypertension Diabetes Kidney stone Pertinent family history: Unable to obtain Social History Advance Directives: No Advance Directives Information Provided: No Do you have a plan to hurt others: No Plan Meds Allergies Allergy/AdvReac Type Severity Reaction Status Date / Time shellfish derived Allergy Intermediate HIVES Verified 10/29/23 17:47 [SHELLFISH DERIVED] Physical Exam 2 Vital Signs and Narrative: Vital Signs: Last Vital Signs Temp 102.0 F H 10/29/23 20:21 Pulse 115 H 10/29/23 20:21 Resp 15 10/29/23 20:21 BP 136/64 10/29/23 20:21 Pulse Ox 97 10/29/23 20:21 O2 Del Method Room Air 10/29/23 20:21 O2 Flow Rate 100 10/29/23 18:13 BMI result Body Mass Index 16.4 Elderly male lying in bed in no distress Neck supple, no JVD Regular rate and rhythm, S1-S2 heard Regular breath sounds bilaterally, no wheezing or crackles appreciated Abdomen soft nontender, no guarding, no rigidity Patient is awake, alert and oriented to place, no focal motor weakness Psych: Normal mood No pedal edema Results Labs 10/29/23 17:54 10/29/23 18:31 Labs: Laboratory Results - last 24 hr 10/29/23 10/29/23 10/29/23 17:54 18:31 19:01 MCV 88.8 MCH 30.2 MCHC 34.0 RDW 14.0 Plt Count 190 MPV 9.2 L Immature Gran % (Auto) 0.5 H Neut % (Auto) 88.0 H Lymph % (Auto) 4.8 L [place] % (Auto) 6.3 Eos % (Auto) 0.2 Baso % (Auto) 0.2 Lymph # (Auto) 0.4 L [place] # (Auto) 0.5 Eos # (Auto) 0.0 Baso # (Auto) 0.0 Abs Immat Gran (auto) 0.04 H Absolute Neuts (auto) 7.4 Absolute Nucleated RBC 0.000 Nucleated RBC % (auto) 0.0 PT 13.2 INR 1.1 Anion Gap 19 Estim Creat Clear Calc 33.6 Estimated GFR > 60 Random Glucose 264 H Lactic Acid 1.6 Calcium 9.0 Total Bilirubin 0.4 AST 29 ALT 15 Alkaline Phosphatase 89 Troponin I High Sens 39.8 H Total Protein 8.6 H Albumin 3.8 Lipase 26 Urine Color Dark Yellow Urine Appearance Cloudy Urine pH 6.5 Ur Specific [place] 1.015 Urine Protein 100 (2+) H Urine Glucose (UA) 250 H Urine Ketones 15 Urine Blood Large (3+) H Urine Nitrite Negative Ur Leukocyte Esterase Moderate (2+) H Urine RBC 3-5 H Urine WBC >50 H Ur Squamous Epith Cells 0-2 Urine Bacteria 4+ Hyaline Casts 0-2 Influenza Type A (PCR) NEGATIVE Influenza Type B (PCR) NEGATIVE RSV RNA Qual (PCR) NEGATIVE SARS-CoV-2 RNA (RT-PCR) NEGATIVE Imaging Radiologist's Impressions: Impressions Cervical Spine CT 10/29/23 18:51 IMPRESSION: No acute intracranial hemorrhage. 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 No acute, displaced cervical spine fracture. 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 If there is symptomatology referrable to this region, dedicated cervical spine MRI is suggested for further evaluation. Head CT 10/29/23 18:51 IMPRESSION: No acute intracranial hemorrhage. 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 No acute, displaced cervical spine fracture. 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 If there is symptomatology referrable to this region, dedicated cervical spine MRI is suggested for further evaluation. Assessment and Plan (1) Acute UTI: Status: Acute (2) Sepsis: Status: Acute Plan This is a 83-year-old male with pertinent history of zvi-kjkbvsv-yovdlnjkx diabetes mellitus, mixed hyperlipidemia, gastroesophageal reflux disease who was brought to the emergency department for concerns of altered mentation. #. Sepsis due to acute UTI: Resuscitated with IV crystalloids. Lactic acid and blood culture obtained. Reviewed previous urine culture, initiating empiric IV Levaquin. Follow urine culture #. Acute metabolic encephalopathy and weakness in the setting of above #. Rrz-ttexotu-tbktjqhkx diabetes mellitus with hyperglycemia: Initiating Accu- Cheks with sliding scale insulin every 6 hours #. Gastroesophageal reflux disease: On PPI Med rec pending DVT prophylaxis: Lovenox Full code. Discussed with son at bedside Admit as inpatient and will require two night minimum hospital stay for IV antibiotics (as above), which is not possible in a lesser acute setting. Quality Stroke Does the patient have a stroke diagnosis?: No VTE Prior VTE?: No VTE Risk Level:: Medical - moderate - high VTE Device Contraindication: Treatment Not Indicated VTE Drug Contraindication: N/A - Med Ordered
[2023-10-29] MEDS: Acetaminophen 1,000 MG/100 ML PIGGYBACK 400 MG IV (21:12)
[2023-10-29] MEDS: Enoxaparin Sodium 40 MG/0.4 ML SYRINGE SUBCUT (21:14)
[2023-10-29] MEDS: levoFLOXacin/D5W 750 MG/150 ML PIGGYBACK 100 MG IV (21:46)
--- NOTE | 2023-10-29 21:57 | MHC.EDTECH ---
2200 ROUNDING DONE ,VITALS TAKEN ,PT [place] CATHETER WAS EMPLY ,POC DONE ,PATIENT WAS REPOSITION AND BED PAD ADJUSTED AND PATIENT WAS BOOSTED UP IN BED PILLOW GIVEN ,PT COMFORTABLE ,AND PATIENT SON AT BEDSIDE ,CALL HAWK WITHIN PATIENT REACH .
[2023-10-29 22:04] LABS: Glucose, Whole Blood 235 mg/dL (60-115)
--- NOTE | 2023-10-29 22:07 | MHC.EDTECH ---
KAMILAH SOLOMON IS AWARE THAT PATIENT HAS A BRUISE ON HIS LEFT EAR AND MICHAEL AREA ON HIS NOSE AND MOUTH AREA FROM C- COLLAR .
--- NOTE | 2023-10-29 23:50 | MHC.EDTECH ---
0000 ROUNDING DONE ,VITALS TAKEN ,TEMP IS DOWN ,PATIENT AWAKE AND ALERT ,PATIENT WAS REPOSITION AND BOOSTED UP IN BED ,FRESH ICE WATER GIVEN ,PATIENT SON JUST LEFT ,CALL HAWK WITHIN PATIENT REACH .
[2023-10-30] MEDS: ondansetron HCL 4 MG/2 ML VIAL IVPUSH (01:12)
[2023-10-30 01:43] VITALS: BP 156/76; PULSE 95; RESP 20; TEMP 36.4; O2SAT 94
[2023-10-30 03:05] VITALS: BP 125/61; PULSE 94; RESP 20; TEMP 36.9; O2SAT 95
[2023-10-30 03:10] LABS: Glucose, Whole Blood 172 mg/dL (60-115)
[2023-10-30 06:13] LABS: Glucose, Whole Blood 161 mg/dL (60-115)
[2023-10-30 06:40] LABS: MANUAL DIFF FLAG NO
[2023-10-30 06:50] LABS: Basophils Percent Auto 0.2 % (0-2); Eosinophils Percent Auto 0.1 % (0-4); Hematocrit 32.3 % (42.0-52.0); Hemoglobin 10.7 g/dl (14.0-18.0); Imm Gran Pct Auto 1.2 % (0.0-0.4); Lymphocytes Absolute Auto 0.7 X10*3/uL (1.2-4.9); Lymphocytes Percent Auto 8.2 % (20-40); Mean Corpuscular HGB Conc 33.1 g/dl (31.0-36.0); Mean Corpuscular Hemoglobin 29.5 pg (27.0-33.0); Monocytes Absolute Auto 0.7 X10*3/uL (0.1-1.2); Monocytes Percent Auto 7.5 % (2-11); Neutrophils Absolute Auto 7.1 x10*3/uL (2.0-8.3); Neutrophils Percent Auto 82.8 % (45-73); Platelet Count 164 X10*3/uL (160-400); Red Blood Count 3.63 X10*6/uL (4.60-5.80); White Blood Count 8.6 X10*3/uL (4.8-10.8)
[2023-10-30 06:56] LABS: Anion Gap 15 (12-20); Blood Urea Nitrogen 18 mg/dL (9-16); Calcium 8.3 mg/dL (8.4-10.2); Carbon Dioxide 20 mmol/L (22-29); Chloride 101 mmol/L (96-108); Creatinine Clr Calc Pharmacy 40.7; Estimated Glomerular Filt Rate > 60; Glucose Random 179 mg/dL (60-115); Potassium 3.3 mmol/L (3.3-5.1); Sodium 133 mmol/L (135-145)
--- NOTE | 2023-10-30 07:03 | P.PNIM_ITS ---
Subjective Subjective Date of Service: 10/30/23 Interval History: f/u on metabolic encephalopathy, uti, sepsis mostly tamazight speaking but able to speak some eanglish, stating I feel good and no pain Physical Exam 2 Vital Signs: Vital Signs: Last Vital Signs Temp 98.4 F 10/30/23 03:05 Pulse 94 10/30/23 03:05 Resp 20 10/30/23 03:05 BP 125/61 10/30/23 03:05 Pulse Ox 95 10/30/23 03:05 O2 Del Method Room Air 10/30/23 03:05 O2 Flow Rate 100 10/29/23 18:13 BMI result Body Mass Index 16.4 General: not able to assess MS d/t language barrier, no acute distress Resp: CTA bilateral CVS: S1,S2,RRR GI: +BS, NT, no distention Skin: No rash Neuro: motor grossly intact Psych: appropriate affect Objective Data Active Medications Acetaminophen (Acetaminophen 325 Mg Tablet) 650 mg PO Q6H PRN PRN Reason: Pain, Mild (Pain Scale 1-3) Acetaminophen (Acetaminophen Supp 650 Mg Supp.Rect) 650 mg [place] Q6H PRN PRN Reason: Pain, Mild (Pain Scale 1-3) Enoxaparin Sodium (Enoxaparin Sodium 40 Mg/0.4 Ml Syringe) 40 mg SUBCUT Q24H [facility] Last Admin: 10/29/23 21:14 Dose: 40 mg Documented By: GILBERTO Glucose (Glucose Gel 15 Gm Gel..Gram.) 15 gm PO Q15M PRN; Protocol PRN Reason: per Hypoglycemia Standing Ord. Glucose (Glucose Gel 15 Gm Gel..Gram.) 15 gm PO Q15M PRN; Protocol PRN Reason: per Hypoglycemia Standing Ord. Levofloxacin (Levaquin) 750 mg in 150 mls @ 100 mls/hr IV Q24H [facility] Last Infusion: 10/29/23 23:17 Dose: Infused Documented By: GILBERTO Dextrose (D10) 250 mls @ 750 mls/hr IV Q15M PRN; Protocol PRN Reason: per Hypoglycemia Standing Ord. Dextrose (D10) 250 mls @ 750 mls/hr IV Q15M PRN; Protocol PRN Reason: per Hypoglycemia Standing Ord. Insulin Human Lispro (Insulin Lispro 100 Unit/Ml 3 Ml Vial) 0 unit SUBCUT QIDACHS [facility]; Protocol Melatonin (Melatonin 3 Mg Tablet) 6 mg PO BEDTIME PRN PRN Reason: Insomnia Ondansetron HCl (Ondansetron Hcl 4 Mg/2 Ml Vial) 4 mg IVPUSH Q8H PRN PRN Reason: Nausea and Vomiting Last Admin: 10/30/23 01:12 Dose: 4 mg Documented By: GILBERTO Sodium Chloride (0.9 % Sodium Chloride Flush 3 Ml Syringe) 3 ml IVFLUSH [facility] Last Admin: 10/30/23 01:03 Dose: Not Given Documented By: GILBERTO Non-Admin Reason: IV Running Labs 10/30/23 06:17 10/30/23 06:17 Labs: Laboratory Results - last 24 hr 10/29/23 10/29/23 10/29/23 17:54 18:31 19:01 MCV 88.8 MCH 30.2 MCHC 34.0 RDW 14.0 Plt Count 190 MPV 9.2 L Immature Gran % (Auto) 0.5 H Neut % (Auto) 88.0 H Lymph % (Auto) 4.8 L [place] % (Auto) 6.3 Eos % (Auto) 0.2 Baso % (Auto) 0.2 Lymph # (Auto) 0.4 L [place] # (Auto) 0.5 Eos # (Auto) 0.0 Baso # (Auto) 0.0 Abs Immat Gran (auto) 0.04 H Absolute Neuts (auto) 7.4 Absolute Nucleated RBC 0.000 Nucleated RBC % (auto) 0.0 PT 13.2 INR 1.1 Anion Gap 19 Estim Creat Clear Calc 33.6 Estimated GFR > 60 POC Glucose Random Glucose 264 H Lactic Acid 1.6 Calcium 9.0 Total Bilirubin 0.4 AST 29 ALT 15 Alkaline Phosphatase 89 Troponin I High Sens 39.8 H Total Protein 8.6 H Albumin 3.8 Lipase 26 Urine Color Dark Yellow Urine Appearance Cloudy Urine pH 6.5 Ur Specific [place] 1.015 Urine Protein 100 (2+) H Urine Glucose (UA) 250 H Urine Ketones 15 Urine Blood Large (3+) H Urine Nitrite Negative Ur Leukocyte Esterase Moderate (2+) H Urine RBC 3-5 H Urine WBC >50 H Ur Squamous Epith Cells 0-2 Urine Bacteria 4+ Hyaline Casts 0-2 Influenza Type A (PCR) NEGATIVE Influenza Type B (PCR) NEGATIVE RSV RNA Qual (PCR) NEGATIVE SARS-CoV-2 RNA (RT-PCR) NEGATIVE 10/29/23 10/30/23 10/30/23 21:55 03:03 06:09 MCV MCH MCHC RDW Plt Count MPV Immature Gran % (Auto) Neut % (Auto) Lymph % (Auto) [place] % (Auto) Eos % (Auto) Baso % (Auto) Lymph # (Auto) [place] # (Auto) Eos # (Auto) Baso # (Auto) Abs Immat Gran (auto) Absolute Neuts (auto) Absolute Nucleated RBC Nucleated RBC % (auto) PT INR Anion Gap Estim Creat Clear Calc Estimated GFR POC Glucose 235 H 172 H 161 H Random Glucose Lactic Acid Calcium Total Bilirubin AST ALT Alkaline Phosphatase Troponin I High Sens Total Protein Albumin Lipase Urine Color Urine Appearance Urine pH Ur Specific [place] Urine Protein Urine Glucose (UA) Urine Ketones Urine Blood Urine Nitrite Ur Leukocyte Esterase Urine RBC Urine WBC Ur Squamous Epith Cells Urine Bacteria Hyaline Casts Influenza Type A (PCR) Influenza Type B (PCR) RSV RNA Qual (PCR) SARS-CoV-2 RNA (RT-PCR) 10/30/23 06:17 MCV 89.0 MCH 29.5 MCHC 33.1 RDW 14.0 Plt Count 164 MPV 9.0 L Immature Gran % (Auto) 1.2 H Neut % (Auto) 82.8 H Lymph % (Auto) 8.2 L [place] % (Auto) 7.5 Eos % (Auto) 0.1 Baso % (Auto) 0.2 Lymph # (Auto) 0.7 L [place] # (Auto) 0.7 Eos # (Auto) 0.0 Baso # (Auto) 0.0 Abs Immat Gran (auto) 0.10 H Absolute Neuts (auto) 7.1 Absolute Nucleated RBC 0.000 Nucleated RBC % (auto) 0.0 PT INR Anion Gap 15 Estim Creat Clear Calc 40.7 Estimated GFR > 60 POC Glucose Random Glucose 179 H Lactic Acid Calcium 8.3 L D Total Bilirubin AST ALT Alkaline Phosphatase Troponin I High Sens Total Protein Albumin Lipase Urine Color Urine Appearance Urine pH Ur Specific [place] Urine Protein Urine Glucose (UA) Urine Ketones Urine Blood Urine Nitrite Ur Leukocyte Esterase Urine RBC Urine WBC Ur Squamous Epith Cells Urine Bacteria Hyaline Casts Influenza Type A (PCR) Influenza Type B (PCR) RSV RNA Qual (PCR) SARS-CoV-2 RNA (RT-PCR) Assessment and Plan (1) Acute UTI: Status: Acute (2) Sepsis: Status: Acute Plan 83-year-old male with pertinent history of mkd-akocyjl-npgascpyp diabetes mellitus, mixed hyperlipidemia, gastroesophageal reflux disease who was brought to the emergency department for concerns of altered mentation. Sepsis due to acute UTI, cultures pending -continue Levaquin Acute metabolic encephalopathy and weakness in the setting of above -excpect return to baseline with treatment Kbj-dlbbgvf-lcvcjrfdi diabetes mellitus with hyperglycemia, add sliding sclale insulin, resume oral meds when eating HLD--resume Lipitor Gastroesophageal reflux disease: On PPI DVT prophylaxis: Lovenox Full code. Discussed with son at bedside need for inpt: sepsis, uti, encephalopathy--failied oral meds, IV Abx will reach to family or vp celebrity services later Quality Stroke Does the patient have a stroke diagnosis?: No VTE Prior VTE?: No VTE Risk Level:: Medical - moderate - high VTE Device Contraindication: Treatment Not Indicated VTE Drug Contraindication: N/A - Med Ordered
[2023-10-30 07:44] VITALS: BP 162/73; PULSE 118; RESP 20; TEMP 37; O2SAT 96
[2023-10-30] MEDS: Lactated Ringers 1,000 ML 125 ML IVCONT ×3 (08:51→22:47)
[2023-10-30] MEDS: 0.9 % Sodium Chloride Flush 3 ML SYRINGE IVFLUSH ×3 (08:54→22:46)
[2023-10-30 12:21] LABS: Glucose, Whole Blood 213 mg/dL (60-115)
--- NOTE | 2023-10-30 13:05 | PHA.MEDREC ---
Pharmacy Consult ? Medication Reconciliation Pharmacy has completed the medication reconciliation. spoke with patients daughter over the phone. She confirmed his medications, she helps take care of his medications. Some things she reported he takes differently then prescribed such as omeprazole he does once daily instead of BID, metformin he takes 1 tablet BID instead of 2 tablets BID, and glipizide he takes BID instead of 2 tablets at once.
[2023-10-30] MEDS: Insulin Lispro 100 UNIT/ML 3 ML VIAL SUBCUT ×2 (13:06→16:44)
--- NOTE | 2023-10-30 14:43 | MHC.CM.PN ---
CM MET WITH PTS SON AT BEDSIDE PT LIVES WITH HIS DAUGHTER, MATEUSZ, WHO PROVIDES 24/7 CARE PT USES A ROLLATOR PRN, BUT WAS NOT NEEDING AN AD CONSISTENTLY MOTION GRAPHICS DESIGNER HE IS UNSURE IF PT HAS A HCP, BUT THINKS IT IS HIS SISTER PCP: MARTHA HANNA IMM DELIVERED CM CALLED PTS DAUGHTER, MATEUSZ [phone] SHE REPORTS THE PT DOES HAVE A HCP WHICH SHOULD BE ON FILE WITH THE PCP SHE ALSO STATES THEY WOULD BE INTERESTED IN VNA IF POSSIBLE AND A REFERRAL TO [facility] PT MAY NEED MORE HELP IN THE FUTURE CURRENT DCP IS HOME WITH RESUMPTION OF FAMILY CARE AND VNA IF INDICATED FAMILY WILL TRANSPORT
[2023-10-30 16:00] VITALS: BP 139/65; PULSE 96; RESP 16; TEMP 37.2; O2SAT 93
[2023-10-30 16:10] LABS: Glucose, Whole Blood 202 mg/dL (60-115)
[2023-10-30 19:50] VITALS: BP 132/60; PULSE 89; RESP 18; TEMP 37.3; O2SAT 93
[2023-10-30 21:42] LABS: Glucose, Whole Blood 115 mg/dL (60-115)
[2023-10-30] MEDS: metFORMIN HCl ER 500 MG TAB.ER.24H PO (22:44)
[2023-10-30] MEDS: Atorvastatin Calcium 20 MG TABLET PO (22:44)
[2023-10-30] MEDS: glipiZIDE 5 MG TABLET PO (22:44)
[2023-10-30] MEDS: Enoxaparin Sodium 40 MG/0.4 ML SYRINGE SUBCUT (22:45)
[2023-10-31 03:23] VITALS: BP 128/60; PULSE 87; RESP 18; TEMP 37.3; O2SAT 95
[2023-10-31] MEDS: Omeprazole 20 MG CAPSULE.DR PO (05:42)
[2023-10-31] MEDS: Lactated Ringers 1,000 ML 125 ML IVCONT ×2 (05:43→16:20)
[2023-10-31 06:40] LABS: Hematocrit 31.4 % (42.0-52.0); Hemoglobin 10.5 g/dl (14.0-18.0); Mean Corpuscular HGB Conc 33.4 g/dl (31.0-36.0); Mean Corpuscular Hemoglobin 29.9 pg (27.0-33.0); Mean Corpuscular Volume 89.5 fL (80.0-98.0); Mean Platelet Volume 9.6 fL (9.4-12.4); Platelet Count 155 X10*3/uL (160-400); Red Blood Count 3.51 X10*6/uL (4.60-5.80); Red Cell Distribution Width 14.1 % (11.0-16.0); White Blood Count 7.7 X10*3/uL (4.8-10.8)
[2023-10-31 06:53] LABS: Anion Gap 15 (12-20); Blood Urea Nitrogen 12 mg/dL (9-16); Calcium 8.5 mg/dL (8.4-10.2); Carbon Dioxide 22 mmol/L (22-29); Chloride 100 mmol/L (96-108); Creatinine Clr Calc Pharmacy 48.7; Estimated Glomerular Filt Rate > 60; Glucose Random 69 mg/dL (60-115); Potassium 3.2 mmol/L (3.3-5.1); Sodium 134 mmol/L (135-145)
[2023-10-31 07:19] LABS: Glucose, Whole Blood 98 mg/dL (60-115)
[2023-10-31 08:00] VITALS: BP 132/58; PULSE 95; RESP 18; TEMP 36.2; O2SAT 94
[2023-10-31] MEDS: metFORMIN HCl ER 500 MG TAB.ER.24H PO ×2 (10:50→21:41)
[2023-10-31] MEDS: 0.9 % Sodium Chloride Flush 3 ML SYRINGE IVFLUSH ×2 (10:50→17:32)
[2023-10-31] MEDS: SITagliptin Phosphate 100 MG TABLET PO (10:50)
[2023-10-31] MEDS: glipiZIDE 5 MG TABLET PO ×2 (10:51→21:41)
[2023-10-31 10:54] VITALS: BP 116/60; PULSE 93; RESP 18; TEMP 37.2; O2SAT 96
[2023-10-31] MEDS: Acetaminophen 325 MG TABLET 650 MG PO (10:55)
[2023-10-31 11:49] VITALS: BMI 20.9
[2023-10-31 12:04] LABS: Glucose, Whole Blood 175 mg/dL (60-115)
[2023-10-31] MEDS: Insulin Lispro 100 UNIT/ML 3 ML VIAL SUBCUT ×2 (13:04→17:32)
[2023-10-31] MEDS: cefTRIAXone sodium 1 GM in 0.9 % Sodium Chloride 50 ML IV (13:05)
[2023-10-31] MEDS: Potassium Chloride Packet 20 MEQ PACKET 40 MEQ PO (15:21)
--- NOTE | 2023-10-31 15:23 | PM.DS ---
DS: Providers Provider Date of Service: 10/31/23 Date of admission: 10/29/23 20:51 Primary care physician: Lory Joseph NP DS: Diagnosis Discharge Diagnosis (1) Acute UTI: Status: Acute (2) Sepsis: Status: Acute DS: Summary Hospital Course Hospital Course: admission hpi Chief Complaint: AMS This is a 83-year-old male with pertinent history of emh-eajdxth-abkulcbmt diabetes mellitus, mixed hyperlipidemia, gastroesophageal reflux disease who was brought to the emergency department for concerns of altered mentation. History obtained with the help of family member at bedside. As per the family member, patient with generalized weakness and falls on the day of presentation. Also with urinary incontinence and confusion as per family. Patient is Pashto speaking and only understands some Tuvaluan. No chest discomfort, palpitations, shortness of breath, abdominal pain, changes in bowel habits. In the emergency department, patient was found to be septic and urine concerning for UTI. hospital course: The patient presented with weakness, altered mental status and work up revealed UTI and sepsis, and dehydration. He was intitated on IVF and IV antibioitic with levaquin and improved rather rapidly. Urine culture came back possile for E.coli which patient seeming seemed to have improved on but is changed to IV ceftriaxone. Confusion has resolved. Weakness has also improved, he is well hydration. He is up and ambulating with walker. He has plenty of family support at home and would like to homeand therefore would change to Cefuroxime for 6 more days. Acute metabolic encephalopathy and weakness in the setting of above, is back to his baseline Cwk-eseuhcj-vjalkrdiz diabetes mellitus with hyperglycemia, add sliding sclale insulin, resume home meds upon discharge HLD--resume Lipitor plan: complete Cefuroxime for 6 more days. follow up outpatient with pcp. Above management discussed with the patient's family in detail length she understand and in agreement with the above plan, time spent 40 minutes and 50% time spent on counseling. Time Attestation Discharge Coordination Time (in mins): 35 Quality: Safe Use of Opioids Does Pt have an Active Cancer Diagnosis on the Problem List?: No Quality: Stroke Does the patient have a stroke diagnosis?: No Physical Exam Vital Signs: Vital Signs: Last Vital Signs Temp 99.0 F 10/31/23 10:54 Pulse 93 10/31/23 10:54 Resp 18 10/31/23 10:54 BP 116/60 10/31/23 10:54 Pulse Ox 96 10/31/23 10:54 O2 Del Method Room Air 10/31/23 10:54 O2 Flow Rate 100 10/29/23 18:13 BMI result Body Mass Index 20.9 DS: Data Data Completed and Pending Labs on day of discharge: Laboratory Results - last 24 hr 10/30/23 10/30/23 10/31/23 16:07 21:35 06:18 WBC 7.7 RBC 3.51 L Hgb 10.5 L Hct 31.4 L MCV 89.5 MCH 29.9 MCHC 33.4 RDW 14.1 Plt Count 155 L MPV 9.6 Absolute Nucleated RBC 0.000 Nucleated RBC % (auto) 0.0 Sodium Potassium Chloride Carbon Dioxide Anion Gap BUN Creatinine Estim Creat Clear Calc Estimated GFR POC Glucose 202 H 115 Random Glucose Calcium 10/31/23 10/31/23 10/31/23 06:19 07:09 11:57 WBC RBC Hgb Hct MCV MCH MCHC RDW Plt Count MPV Absolute Nucleated RBC Nucleated RBC % (auto) Sodium 134 L Potassium 3.2 L Chloride 100 Carbon Dioxide 22 Anion Gap 15 BUN 12 Creatinine 0.76 Estim Creat Clear Calc 48.7 Estimated GFR > 60 POC Glucose 98 175 H Random Glucose 69 Calcium 8.5 Preliminary micro results at discharge 10/29/23 18:31 Blood Culture - Preliminary Blood - Venous No growth after 24 hours. 10/29/23 17:53 Blood Culture - Preliminary Blood - Venous No growth after 24 hours. Discharge Plan Discharge Anticipated Discharge Date/Time: 11/01/23 11:51 Patient Disposition: Home, Self-Care Discharge Diagnosis: Sepsis due to UTI Referrals: Lory Joseph NP [Primary Care Provider] - 1 Week Discharge Medications: New cefuroxime axetil 500 mg tablet 500 mg PO BID Qty: 12 0RF Continued atorvastatin 20 mg tablet 20 mg PO QPM glipizide 10 mg tablet 10 mg PO BID acetaminophen 500 mg Tablet 1,000 mg PO DAILY PRN (Reason: pain or fever) omeprazole 20 mg capsule,delayed release(DR/EC) 20 mg PO DAILY metformin 500 mg tablet extended release 24 hr 500 mg PO BID Januvia 100 mg tablet 100 mg PO DAILY Discharge Orders: Discharge Order (Routine); Ordered 11/01/23 Ordered By: Lissett Lee Diet: Diabetic diet Activity on Discharge: As tolerated Stand Alone Forms: Patient Portal Discharge page, Work/School Release Print Language: Bolivian Care Plan Goals: recovery from sepsis, uti and return to baseline functionig status Health Concerns: uti sepsis diabetes Plan of Treatment: take Cefuroxime 250 mg twice daily for 7 days follow up with your Doctor in a week, call for appointment Assessment: see above Discharge Date/Time: 11/01/23 13:11
--- NOTE | 2023-10-31 15:54 | MHC.CM.PN ---
Pt is medically cleared for discharge home self-care, pts family to transport him home.
[2023-10-31 16:00] VITALS: BP 161/66; PULSE 82; RESP 16; TEMP 36.6; O2SAT 94
[2023-10-31 17:00] LABS: Glucose, Whole Blood 193 mg/dL (60-115)
[2023-10-31 20:00] VITALS: BP 161/72; PULSE 83; RESP 18; TEMP 37; O2SAT 96
[2023-10-31 21:37] LABS: Glucose, Whole Blood 116 mg/dL (60-115)
[2023-10-31] MEDS: Enoxaparin Sodium 40 MG/0.4 ML SYRINGE SUBCUT (21:41)
[2023-10-31] MEDS: Atorvastatin Calcium 20 MG TABLET PO (21:41)
[2023-11-01 03:24] VITALS: BP 144/68; PULSE 92; RESP 18; TEMP 36.8; O2SAT 96
[2023-11-01] MEDS: Lactated Ringers 1,000 ML 125 ML IVCONT (04:11)
[2023-11-01] MEDS: Omeprazole 20 MG CAPSULE.DR PO (05:12)
[2023-11-01 07:45] LABS: Glucose, Whole Blood 85 mg/dL (60-115)
[2023-11-01 07:46] VITALS: BP 150/71; PULSE 93; RESP 18; TEMP 36.6; O2SAT 94
[2023-11-01] MEDS: SITagliptin Phosphate 100 MG TABLET PO (08:56)
[2023-11-01] MEDS: 0.9 % Sodium Chloride Flush 3 ML SYRINGE IVFLUSH (08:56)
[2023-11-01] MEDS: glipiZIDE 5 MG TABLET PO (08:56)
[2023-11-01] MEDS: metFORMIN HCl ER 500 MG TAB.ER.24H PO (08:56)
[2023-11-01 10:02] LABS: Potassium 3.4 mmol/L (3.3-5.1)
--- NOTE | 2023-11-01 10:17 | MHC.CM.PN ---
Pt is medically cleared for discharge home self-care, pts family to transport him home.
[2023-11-01 10:47] VITALS: BP 139/89; PULSE 89; RESP 16; TEMP 36.2; O2SAT 96
[2023-11-01 11:50] LABS: Glucose, Whole Blood 100 mg/dL (60-115)
--- NOTE | 2023-11-01 11:57 | P.DS_ITS ---
DS: Providers Provider Date of Service: 11/01/23 Date of admission: 10/29/23 20:51 Date of discharge: 11/01/23 Primary care physician: Lory Joseph NP DS: Diagnosis Discharge Diagnosis (1) Acute UTI: Status: Acute (2) Sepsis: Status: Acute DS: Summary Hospital Course Hospital Course: admission hpi Chief Complaint: AMS This is a 83-year-old male with pertinent history of afp-bnbwpfo-bgqofnybv [place] mellitus, mixed hyperlipidemia, gastroesophageal reflux disease who was brought to the emergency department for concerns of altered mentation. History obtained with the help of family member at bedside. As per the family member, patient with generalized weakness and falls on the day of presentation. Also with urinary incontinence and confusion as per family. Patient is Greenlandic speaking and only understands some Cambodian. No chest discomfort, palpitations, shortness of breath, abdominal pain, changes in bowel habits. In the emergency department, patient was found to be septic and urine concerning for UTI. hospital course: The patient presented with weakness, altered mental status and work up revealed UTI and sepsis, and dehydration. He was intitated on IVF and IV antibioitic with levaquin and improved rather rapidly. Urine culture came back possile for E.coli which patient seeming seemed to have improved on but is changed to IV ceftriaxone. Confusion has resolved. Weakness has also improved, he is well hydration. He is up and ambulating with walker. He has plenty of family support at home and would like to homeand therefore would change to Cefuroxime for 6 more days. Acute metabolic encephalopathy and weakness in the setting of above, is back to his baseline Qgw-vwtgvqx-rkqwnqefh diabetes mellitus with hyperglycemia, add sliding sclale insulin, resume home meds upon discharge HLD--resume Lipitor plan: complete Cefuroxime for 6 more days. follow up outpatient with pcp. Above management discussed with the patient's family in detail length she understand and in agreement with the above plan, time spent 40 minutes and 50% time spent on counseling. Time Attestation Total time managing care of this patient today: 40 mintues. Discharge Coordination Time (in mins): 40 Quality: Safe Use of Opioids Does Pt have an Active Cancer Diagnosis on the Problem List?: No Quality: Stroke Does the patient have a stroke diagnosis?: No Physical Exam Vital Signs: Vital Signs: Last Vital Signs Temp 97.2 F 11/01/23 10:47 Pulse 89 11/01/23 10:47 Resp 16 11/01/23 10:47 BP 139/89 11/01/23 10:47 Pulse Ox 96 11/01/23 10:47 O2 Del Method Room Air 11/01/23 10:47 O2 Flow Rate 100 10/29/23 18:13 BMI result Body Mass Index 20.9 General:no acute distress Resp: CTA bilateral CVS: S1,S2,RRR GI: +BS, NT, no distention Skin: No rash Neuro: motor grossly intact Psych: appropriate affect DS: Data Data Completed and Pending Labs on day of discharge: Laboratory Results - last 24 hr 10/31/23 10/31/23 10/31/23 11:57 16:52 20:05 Potassium POC Glucose 175 H 193 H 116 H 11/01/23 11/01/23 11/01/23 07:41 09:37 11:46 Potassium 3.4 POC Glucose 85 100 Preliminary micro results at discharge 10/29/23 18:31 Blood Culture - Preliminary Blood - Venous No growth after 48 hours. 10/29/23 17:53 Blood Culture - Preliminary Blood - Venous No growth after 48 hours. Imaging Chest x-ray: Radiologist's impression: ITS Impressions Cervical Spine CT 10/29/23 18:51 IMPRESSION: No acute intracranial hemorrhage. 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 No acute, displaced cervical spine fracture. 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 If there is symptomatology referrable to this region, dedicated cervical spine MRI is suggested for further evaluation. Head CT 10/29/23 18:51 IMPRESSION: No acute intracranial hemorrhage. Multiple chronic areas of infarction, most prominently in the right basal ganglia/tohmas radiata. No acute, displaced cervical spine fracture. 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 If there is symptomatology referrable to this region, dedicated cervical spine MRI is suggested for further evaluation. Chest X-Ray 10/29/23 20:54 IMPRESSION: Mild coarse, streaky bibasilar reticular opacities, similar to prior, favored to represent scarring. No confluent consolidation. Discharge Plan Discharge Anticipated Discharge Date/Time: 11/01/23 11:51 Patient Disposition: Home, Self-Care Discharge Diagnosis: Sepsis due to UTI Referrals: Lory Joseph NP [Primary Care Provider] - 1 Week Discharge Medications: New cefuroxime axetil 500 mg tablet 500 mg PO BID Qty: 11 0RF Continued atorvastatin 20 mg tablet 20 mg PO QPM glipizide 10 mg tablet 10 mg PO BID acetaminophen 500 mg Tablet 1,000 mg PO DAILY PRN (Reason: pain or fever) omeprazole 20 mg capsule,delayed release(DR/EC) 20 mg PO DAILY metformin 500 mg tablet extended release 24 hr 500 mg PO BID Januvia 100 mg tablet 100 mg PO DAILY Discharge Orders: Discharge Order (Routine); Ordered 11/01/23 Ordered By: Lissett Lee Diet: Diabetic diet Activity on Discharge: As tolerated Stand Alone Forms: Patient Portal Discharge page Print Language: Kenyan Care Plan Goals: recovery from sepsis, uti and return to baseline functionig status Health Concerns: uti sepsis diabetes Plan of Treatment: take Cefuroxime 250 mg twice daily for 7 days follow up with your Doctor in a week, call for appointment Assessment: see above
[2023-11-01] MEDS: Lactulose 20 GM/30 ML SOLUTION 30 GM G-TUBE (12:08)
== END 2023-11-01 13:11 | disposition home or self-care (01) | DRG 871 ==
LOC: HO.ED 19:37 → HO.EDOVER 21:02 → HO.IMC 10-30 00:43
PROVIDERS: Internal Medicine; Physician Assistant; Admitting Provider Student in an Organized Health Care Education/Training Program; Emergency Provider Emergency Medicine; PCP Nurse Practitioner Primary Care; Visit Provider Internal Medicine
DX: A41.9 Sepsis, unspecified organism (principal); G93.41 Metabolic encephalopathy; N39.0 Urinary tract infection, site not specified; E78.2 Mixed hyperlipidemia; E11.65 Type 2 diabetes mellitus with hyperglycemia; K21.9 Gastro-esophageal reflux disease without esophagitis; I10 Essential (primary) hypertension; B96.20 Unspecified Escherichia coli [E. coli] as the cause of diseases classified elsewhere; Z20.822 Contact with and (suspected) exposure to COVID-19; Z79.84 Long term (current) use of oral hypoglycemic drugs; Z79.899 Other long term (current) drug therapy
CPT/HCPCS: 0241U; 36415; 70450; 71045; 72125; 80048; 80053; 81001; 82947; 83605; 83690; 84132; 84484; 85025; 85027; 85610; 87040; 87086; 87088; 87186; 93005; 97116; 97162; 99285; J0131; J0696; J1650; J1956; J2405; J7120

== ENCOUNTER → 2023-10-29 17:32 | Outpatient (BNV) | payer MEDICARE, SELFPAY | PROVIDERS: Admitting Provider Student in an Organized Health Care Education/Training Program; Emergency Provider Emergency Medicine; PCP Nurse Practitioner Primary Care; Visit Provider Internal Medicine Cardiovascular Disease | DX: R00.0 Tachycardia, unspecified (principal); R55 Syncope and collapse; I45.10 Unspecified right bundle-branch block | CPT/HCPCS: 93010 ==

== ENCOUNTER → 2023-10-29 20:51 | Outpatient (BNV) | payer MEDICARE, SELFPAY | PROVIDERS: Admitting Provider Student in an Organized Health Care Education/Training Program; Emergency Provider Emergency Medicine; PCP Nurse Practitioner Primary Care; Visit Provider Student in an Organized Health Care Education/Training Program | DX: N39.0 Urinary tract infection, site not specified (principal); A41.9 Sepsis, unspecified organism; E11.65 Type 2 diabetes mellitus with hyperglycemia | CPT/HCPCS: 99223; 99232; 99239 ==